=== PATIENT | male | born 1935 | race Caucasian/White ===

== ENCOUNTER 2022-12-24 16:44 | Inpatient (IN) | payer MEDICARE, OTHER ==
[~2022-12-24] VITALS: Ht 167.6 cm; Wt 72.6 kg
[2022-12-24 17:42] LABS: BASOPHILS % 0.1 % (0.0-1.0); EOSINOPHILS # (AUTO) 0.1 (0.0-0.4); EOSINOPHILS % 1.4 % (0.0-6.0); HEMATOCRIT 45.2 % (38.2-49.6); LYMPHOCYTES # (AUTO) 0.9 (1.0-3.2); MEAN CORPUSCULAR HEMOGLOBIN 30.1 pg (28-32); MEAN CORPUSCULAR HGB CONC 33.2 g/dL (31-35); MEAN CORPUSCULAR VOLUME 90.8 fL (81-99); MONOCYTES # (AUTO) 0.6 (0.2-0.8); MONOCYTES % 8.3 % (4.4-11.3); NEUTROPHILS # (AUTO) 5.6 (2.1-6.9); NEUTROPHILS % 77.8 % (38.7-80.0); PLATELET COUNT 146 x10e3/uL (140-360); RED BLOOD COUNT 4.98 x10e6/uL (4.3-5.7); RED CELL DISTRIBUTION WIDTH 13.3 % (11.7-14.4)
[2022-12-24 17:58] LABS: ALANINE AMINOTRANSFERASE 20 IU/L (0-55); ALBUMIN 3.7 g/dL (3.5-5.0); ALBUMIN/GLOBULIN RATIO 1.5 (0.8-2.0); ALKALINE PHOSPHATASE 64 IU/L (40-150); ANION GAP 12.1 mmol/L (8-16); BLOOD UREA NITROGEN 27 mg/dL (7-26); BUN/CREATININE RATIO 21 (6-25); CALCIUM 9.6 mg/dL (8.4-10.2); CARBON DIOXIDE 26 mmol/L (22-29); CHLORIDE 109 mmol/L (98-107); CREATININE, SERUM 1.27 mg/dL (0.72-1.25); GLUCOSE 93 mg/dL (74-118); POTASSIUM 4.1 mmol/L (3.5-5.1); SODIUM 143 mmol/L (136-145)
[2022-12-24] MEDS ORDERED: ONDANSETRON HCL INJ 2MG/ML 2ML 2 MG/ML VIAL IV PRN (18:45)
[2022-12-24] MEDS ORDERED: HYDRALAZINE HCL 20 MG/ML VIAL ONE (19:31)
[2022-12-24] MEDS: HYDRALAZINE HCL 20 MG/ML VIAL IV PRN ×2 (19:33→22:16)
[2022-12-24 19:40] LABS: CLARITY,URINE CLEAR (CLEAR); COLOR,URINE YELLOW (YELLOW); LEUKOCYTE ESTERASE ,URINE NEGATIVE (NEGATIVE); NITRITE,URINE NEGATIVE (NEGATIVE)
[2022-12-24 19:42] LABS: KETONES,URINE NEGATIVE (NEGATIVE); PROTEIN,URINE DIPSTICK 1+ (NEGATIVE); URINE UROBILINOGEN 0.2 mg/dL (0.2 - 1)
[2022-12-24 19:43] LABS: BACTERIA,URINE FEW /HPF; EPITHELIAL CELLS,URINE FEW /LPF; RBC,URINE 0-5 /HPF (0-5); WBC,URINE (MAN) 0-5 /HPF (0-5)
[2022-12-25] VITALS (10 sets, daily range): BP systolic 139–190; BP diastolic 62–92
[2022-12-25 02:33] LABS: CREATINE KINASE 293 IU/L (30-200)
[2022-12-25] MEDS: HYDRALAZINE HCL 20 MG/ML VIAL IV PRN ×3 (08:45→21:52)
[2022-12-25] MEDS ORDERED: LISINOPRIL40 MG PO (08:50)
[2022-12-25] MEDS ORDERED: POTASSIUM CHLO20 ME1 PO (08:50)
[2022-12-25] MEDS ORDERED: TERAZOSIN HCL5 MG PO (08:50)
[2022-12-25] MEDS ORDERED: ATORVASTATIN CA20 MG PO (09:56)
[2022-12-25] MEDS ORDERED: ASPIRIN81 MG PO (09:56)
[2022-12-25] MEDS ORDERED: CLOPIDOGREL75 MG PO (09:56)
[2022-12-25 10:06] LABS: CREATINE KINASE 234 IU/L (30-200)
[2022-12-25] MEDS ORDERED: ACETAMINOPHEN 325 MG TAB PO PRN (12:30)
[2022-12-25] MEDS ORDERED: POLYETHYLENE GLYCOL 3350 17 GM PACK PO PRN (16:45)
[2022-12-25] MEDS ORDERED: POTASSIUM CHLORIDE 20 MEQ TAB CR PO SCH (17:00)
[2022-12-25] MEDS: DOCUSATE SODIUM 100 MG CAP PO SCH (17:19)
[2022-12-25] MEDS: SODIUM CHLORIDE 0.9% 1000ML 1,000 ML IV SCH (17:20)
[2022-12-25 18:34] LABS: CREATINE KINASE 163 IU/L (30-200)
[2022-12-25] MEDS ORDERED: CO Q-10100 MG PO (18:54)
[2022-12-25] MEDS ORDERED: CLONIDINE PO (18:54)
[2022-12-25] MEDS ORDERED: MAGNESIUM PO (18:54)
[2022-12-26] VITALS (9 sets, daily range): BP systolic 102–185; BP diastolic 66–89
[2022-12-26] MEDS: HYDRALAZINE HCL 20 MG/ML VIAL IV PRN ×2 (05:35→23:30)
[2022-12-26] MEDS: SODIUM CHLORIDE 0.9% 1000ML 1,000 ML IV SCH ×3 (05:36→22:45)
[2022-12-26 06:10] LABS: BASOPHILS % 0.2 % (0.0-1.0); EOSINOPHILS # (AUTO) 0.1 (0.0-0.4); EOSINOPHILS % 0.8 % (0.0-6.0); HEMATOCRIT 42.7 % (38.2-49.6); HEMOGLOBIN 14.2 g/dL (14.0-18.0); LYMPHOCYTES # (AUTO) 0.6 (1.0-3.2); LYMPHOCYTES % 7.7 % (18.0-39.1); MEAN CORPUSCULAR HEMOGLOBIN 30.1 pg (28-32); MEAN CORPUSCULAR HGB CONC 33.3 g/dL (31-35); MEAN CORPUSCULAR VOLUME 90.7 fL (81-99); MONOCYTES # (AUTO) 0.8 (0.2-0.8); MONOCYTES % 9.5 % (4.4-11.3); NEUTROPHILS # (AUTO) 6.8 (2.1-6.9); NEUTROPHILS % 81.4 % (38.7-80.0); PLATELET COUNT 155 x10e3/uL (140-360); RED BLOOD COUNT 4.71 x10e6/uL (4.3-5.7); RED CELL DISTRIBUTION WIDTH 13.3 % (11.7-14.4)
[2022-12-26 06:50] LABS: ALBUMIN 3.1 g/dL (3.5-5.0); ALBUMIN/GLOBULIN RATIO 1.2 (0.8-2.0); ANION GAP 11.7 mmol/L (8-16); CALCIUM 8.6 mg/dL (8.4-10.2); CREATININE, SERUM 1.1 mg/dL (0.72-1.25); MAGNESIUM 2.2 MG/DL (1.3-2.1); PHOSPHORUS 3.3 MG/DL (2.3-4.7); POTASSIUM 3.7 mmol/L (3.5-5.1)
[2022-12-26 06:57] LABS: THYROID STIMULATING HORMONE 0.923 uIU/mL (0.350-4.940)
[2022-12-26] MEDS ORDERED: CLOPIDOGREL BISULFATE 75 MG TAB PO SCH (09:00)
[2022-12-26] MEDS: ATORVASTATIN 40 MG TAB PO SCH (09:00)
[2022-12-26] MEDS ORDERED: LISINOPRIL 20 MG TAB PO SCH (09:00)
[2022-12-26] MEDS: POTASSIUM CHLORIDE 20 MEQ TAB CR PO SCH ×2 (10:31→17:34)
[2022-12-26] MEDS: FAMOTIDINE 20 MG TAB PO SCH ×3 (10:32→17:32)
[2022-12-26] MEDS: ASPIRIN 81 MG CHEW TAB PO SCH (10:33)
[2022-12-26] MEDS: TERAZOSIN HCL 5 MG CAP PO SCH (10:33)
[2022-12-26] MEDS: METOPROLOL SUCCINATE 50 MG TAB XL PO SCH (11:00)
[2022-12-26] MEDS: AMIODARONE HCL 200 MG TAB PO SCH (17:00)
[2022-12-26] MEDS: DOCUSATE SODIUM 100 MG CAP PO SCH ×2 (17:32→17:35)
[2022-12-26] MEDS: APIXABAN 5 MG TABLET PO SCH (17:35)
[2022-12-27] VITALS (8 sets, daily range): BP systolic 98–190; BP diastolic 70–90
[2022-12-27] MEDS ORDERED: LISINOPRIL 10 MG TAB PO SCH (09:00)
[2022-12-27] MEDS: POTASSIUM CHLORIDE 20 MEQ TAB CR PO SCH ×2 (09:04→17:20)
[2022-12-27] MEDS: AMIODARONE HCL 200 MG TAB PO SCH ×2 (09:04→17:20)
[2022-12-27] MEDS: TERAZOSIN HCL 5 MG CAP PO SCH (09:04)
[2022-12-27] MEDS: DOCUSATE SODIUM 100 MG CAP PO SCH ×2 (09:04→17:20)
[2022-12-27] MEDS: APIXABAN 5 MG TABLET PO SCH ×2 (09:04→17:20)
[2022-12-27] MEDS: ATORVASTATIN 40 MG TAB PO SCH (09:04)
[2022-12-27] MEDS: ASPIRIN 81 MG CHEW TAB PO SCH (09:05)
[2022-12-27] MEDS: FAMOTIDINE 20 MG TAB PO SCH ×2 (09:05→17:19)
[2022-12-27] MEDS: METOPROLOL SUCCINATE 50 MG TAB XL PO SCH (09:05)
[2022-12-27] MEDS: SODIUM CHLORIDE 0.9% 1000ML 1,000 ML IV SCH (09:06)
[2022-12-27] MEDS ORDERED: ONDANSETRON HCL 4 MG ORAL DISINTEGRATING TAB PO PRN (14:15)
[2022-12-28] VITALS (8 sets, daily range): BP systolic 159–186; BP diastolic 60–91
[2022-12-28 05:53] LABS: BASOPHILS % 0.3 % (0.0-1.0); EOSINOPHILS # (AUTO) 0.2 (0.0-0.4); EOSINOPHILS % 3.1 % (0.0-6.0); HEMOGLOBIN 13.2 g/dL (14.0-18.0); LYMPHOCYTES # (AUTO) 0.8 (1.0-3.2); LYMPHOCYTES % 11.6 % (18.0-39.1); MEAN CORPUSCULAR HEMOGLOBIN 29.9 pg (28-32); MEAN CORPUSCULAR VOLUME 90.5 fL (81-99); MONOCYTES # (AUTO) 0.7 (0.2-0.8); MONOCYTES % 10.5 % (4.4-11.3); NEUTROPHILS % 74.1 % (38.7-80.0); PLATELET COUNT 146 x10e3/uL (140-360); RED BLOOD COUNT 4.42 x10e6/uL (4.3-5.7); RED CELL DISTRIBUTION WIDTH 13.2 % (11.7-14.4)
[2022-12-28] MEDS: HYDRALAZINE HCL 20 MG/ML VIAL IV PRN ×2 (06:00→20:53)
[2022-12-28 06:15] LABS: ANION GAP 8.9 mmol/L (8-16); CALCIUM 8.5 mg/dL (8.4-10.2); CREATININE, SERUM 0.93 mg/dL (0.72-1.25); POTASSIUM 3.9 mmol/L (3.5-5.1)
[2022-12-28] MEDS: METOPROLOL SUCCINATE 50 MG TAB XL PO SCH (08:40)
[2022-12-28] MEDS: DOCUSATE SODIUM 100 MG CAP PO SCH ×2 (08:40→17:37)
[2022-12-28] MEDS: ATORVASTATIN 40 MG TAB PO SCH (08:40)
[2022-12-28] MEDS: APIXABAN 5 MG TABLET PO SCH ×2 (08:40→17:37)
[2022-12-28] MEDS: ASPIRIN 81 MG CHEW TAB PO SCH (08:40)
[2022-12-28] MEDS: FAMOTIDINE 20 MG TAB PO SCH ×2 (08:40→17:37)
[2022-12-28] MEDS: TERAZOSIN HCL 5 MG CAP PO SCH (08:40)
[2022-12-28] MEDS: AMIODARONE HCL 200 MG TAB PO SCH ×2 (08:41→17:37)
[2022-12-28] MEDS: POTASSIUM CHLORIDE 20 MEQ TAB CR PO SCH ×2 (08:51→17:37)
[2022-12-29] VITALS (7 sets, daily range): BP systolic 149–195; BP diastolic 72–92
[2022-12-29] MEDS: DOCUSATE SODIUM 100 MG CAP PO SCH ×2 (08:51→16:16)
[2022-12-29] MEDS: AMIODARONE HCL 200 MG TAB PO SCH ×2 (08:51→16:15)
[2022-12-29] MEDS: ASPIRIN 81 MG CHEW TAB PO SCH (08:51)
[2022-12-29] MEDS: FAMOTIDINE 20 MG TAB PO SCH (08:51)
[2022-12-29] MEDS: METOPROLOL SUCCINATE 50 MG TAB XL PO SCH (08:52)
[2022-12-29] MEDS: POTASSIUM CHLORIDE 20 MEQ TAB CR PO SCH ×2 (08:52→16:15)
[2022-12-29] MEDS: ATORVASTATIN 40 MG TAB PO SCH (08:52)
[2022-12-29] MEDS: TERAZOSIN HCL 5 MG CAP PO SCH (08:52)
[2022-12-29] MEDS: APIXABAN 5 MG TABLET PO SCH ×2 (08:56→16:15)
[2022-12-29] MEDS: HYDRALAZINE HCL 20 MG/ML VIAL IV PRN ×2 (12:33→20:44)
[2022-12-30] VITALS (10 sets, daily range): BP systolic 137–195; BP diastolic 59–85
[2022-12-30] MEDS: FAMOTIDINE 20 MG TAB PO SCH ×2 (08:06→16:09)
[2022-12-30] MEDS: ATORVASTATIN 40 MG TAB PO SCH (08:07)
[2022-12-30] MEDS: POTASSIUM CHLORIDE 20 MEQ TAB CR PO SCH ×2 (08:07→16:11)
[2022-12-30] MEDS: APIXABAN 5 MG TABLET PO SCH ×2 (08:08→16:09)
[2022-12-30] MEDS: AMIODARONE HCL 200 MG TAB PO SCH ×2 (08:08→16:10)
[2022-12-30] MEDS: ASPIRIN 81 MG CHEW TAB PO SCH (08:08)
[2022-12-30] MEDS: DOCUSATE SODIUM 100 MG CAP PO SCH ×2 (08:09→16:10)
[2022-12-30] MEDS: METOPROLOL SUCCINATE 50 MG TAB XL PO SCH (08:18)
[2022-12-30] MEDS: TERAZOSIN HCL 5 MG CAP PO SCH (08:19)
[2022-12-30] MEDS: HYDRALAZINE HCL 20 MG/ML VIAL IV PRN (13:38)
[2022-12-30] MEDS ORDERED: LISINOPRIL 2.5 MG TAB PO ONE (17:30)
[2022-12-31] VITALS (8 sets, daily range): BP systolic 154–186; BP diastolic 64–93
[2022-12-31] MEDS: HYDRALAZINE HCL 20 MG/ML VIAL IV PRN (05:09)
[2022-12-31] MEDS: FAMOTIDINE 20 MG TAB PO SCH ×2 (08:35→17:26)
[2022-12-31] MEDS: DOCUSATE SODIUM 100 MG CAP PO SCH ×3 (08:35→17:26)
[2022-12-31] MEDS: ASPIRIN 81 MG CHEW TAB PO SCH (08:35)
[2022-12-31] MEDS: POTASSIUM CHLORIDE 20 MEQ TAB CR PO SCH ×2 (08:36→17:27)
[2022-12-31] MEDS: ATORVASTATIN 40 MG TAB PO SCH (08:36)
[2022-12-31] MEDS: APIXABAN 5 MG TABLET PO SCH ×2 (08:36→17:26)
[2022-12-31] MEDS: TERAZOSIN HCL 5 MG CAP PO SCH (08:37)
[2022-12-31] MEDS: METOPROLOL SUCCINATE 50 MG TAB XL PO SCH (08:37)
[2022-12-31] MEDS: AMIODARONE HCL 200 MG TAB PO SCH ×2 (08:38→17:27)
[2022-12-31] MEDS ORDERED: LISINOPRIL 2.5 MG TAB PO SCH (09:00)
[2023-01-01] MEDS: HYDRALAZINE HCL 20 MG/ML VIAL IV PRN ×2 (00:51→06:05)
[2023-01-01 01:14] VITALS: BP 178/72
[2023-01-01 05:35] VITALS: BP 174/65
[2023-01-01 08:43] VITALS: BP 169/71
[2023-01-01] MEDS: LISINOPRIL 10 MG TAB PO SCH (08:53)
[2023-01-01] MEDS: METOPROLOL SUCCINATE 50 MG TAB XL PO SCH (08:54)
[2023-01-01] MEDS: APIXABAN 5 MG TABLET PO SCH ×2 (08:54→16:35)
[2023-01-01] MEDS: ASPIRIN 81 MG CHEW TAB PO SCH (08:54)
[2023-01-01] MEDS: ATORVASTATIN 40 MG TAB PO SCH (08:54)
[2023-01-01] MEDS: TERAZOSIN HCL 5 MG CAP PO SCH (08:54)
[2023-01-01] MEDS: FAMOTIDINE 20 MG TAB PO SCH ×2 (08:54→16:36)
[2023-01-01] MEDS: AMIODARONE HCL 200 MG TAB PO SCH ×2 (08:54→16:36)
[2023-01-01] MEDS: DOCUSATE SODIUM 100 MG CAP PO SCH ×2 (08:55→16:39)
[2023-01-01] MEDS: POTASSIUM CHLORIDE 20 MEQ TAB CR PO SCH ×2 (08:55→16:36)
[2023-01-01 12:00] VITALS: BP 153/69
[2023-01-01 16:00] VITALS: BP 154/67
[2023-01-01 20:00] VITALS: BP 158/87
[2023-01-02] VITALS: BP 162/62
[2023-01-02 04:00] VITALS: BP 160/82
[2023-01-02 08:40] VITALS: BP 159/76
[2023-01-02] MEDS: ASPIRIN 81 MG CHEW TAB PO SCH (09:33)
[2023-01-02] MEDS: AMIODARONE HCL 200 MG TAB PO SCH (09:33)
[2023-01-02] MEDS: METOPROLOL SUCCINATE 50 MG TAB XL PO SCH (09:33)
[2023-01-02] MEDS: DOCUSATE SODIUM 100 MG CAP PO SCH (09:34)
[2023-01-02] MEDS: ATORVASTATIN 40 MG TAB PO SCH (09:34)
[2023-01-02] MEDS: POTASSIUM CHLORIDE 20 MEQ TAB CR PO SCH (09:34)
[2023-01-02] MEDS: APIXABAN 5 MG TABLET PO SCH (09:34)
[2023-01-02] MEDS: TERAZOSIN HCL 5 MG CAP PO SCH (09:34)
[2023-01-02] MEDS: LISINOPRIL 10 MG TAB PO SCH (09:34)
[2023-01-02] MEDS: FAMOTIDINE 20 MG TAB PO SCH (09:34)
[2023-01-02 12:31] VITALS: BP 165/69
[2023-01-02] MEDS ORDERED: FAMOTIDINE20 MG PO (14:22)
[2023-01-02] MEDS ORDERED: ACETAMINOPHEN325 M1 PO (14:22)
[2023-01-02] MEDS ORDERED: MIRALAX17 GM PO (14:22)
[2023-01-02] MEDS ORDERED: ELIQUIS5 MG PO (14:22)
[2023-01-02] MEDS ORDERED: AMIODARONE HCL200 MG PO (14:22)
[2023-01-02] MEDS ORDERED: TOPROL XL50 MG PO (14:22)
[2023-01-02] MEDS ORDERED: ONDANSETRON ODT4 MG PO (14:22)
[2023-01-02] MEDS ORDERED: Docusate Sodium PO (14:22)
[2023-01-02] MEDS ORDERED: LISINOPRIL10 MG PO (14:22)
[2023-01-02 15:58] VITALS: BP 167/87
== END 2023-01-02 15:38 | DRG 309 ==
LOC: ER 16:53 → ERHOLD 18:37 → MED/SURG3 22:40 → OBSVTOIN 12-26 08:47
PROVIDERS: ADMIT Internal Medicine; ATTEND Internal Medicine
DX: I48.0 Paroxysmal atrial fibrillation (principal); N17.9 Acute kidney failure, unspecified; Z66 Do not resuscitate; E78.5 Hyperlipidemia, unspecified; R29.6 Repeated falls; R53.1 Weakness; I95.9 Hypotension, unspecified; W19.XXXA Unspecified fall, initial encounter; I12.9 Hypertensive chronic kidney disease with stage 1 through stage 4 chronic kidney disease, or unspecified chronic kidney disease; N18.9 Chronic kidney disease, unspecified; E86.0 Dehydration; M19.90 Unspecified osteoarthritis, unspecified site; Z86.73 Personal history of transient ischemic attack (TIA), and cerebral infarction without residual deficits; Z20.822 Contact with and (suspected) exposure to COVID-19; Z87.891 Personal history of nicotine dependence; Z79.01 Long term (current) use of anticoagulants; Z79.82 Long term (current) use of aspirin
CPT/HCPCS: 0223U; 36415; 70450; 71045; 72125; 80048; 80053; 80061; 81001; 82550; 82553; 83036; 83735; 84100; 84443; 84484; 85025; 93005; 93306; 99284; G0378; J7030

== ENCOUNTER 2023-07-06 23:11 | Emergency (ER) | payer OTHER, MEDICARE ==
[~2023-07-06] VITALS: Ht 167.6 cm; Wt 72.6 kg
[~2023-07-06 23:11] MED LIST: ACETAMINOPHEN325 M1 PO; AMIODARONE HCL200 MG PO; ASPIRIN81 MG PO; ATORVASTATIN CA20 MG PO; CLONIDINE PO; CLOPIDOGREL75 MG PO; CO Q-10100 MG PO; Docusate Sodium PO; ELIQUIS5 MG PO; FAMOTIDINE20 MG PO; LISINOPRIL10 MG PO; LISINOPRIL40 MG PO; MAGNESIUM PO; MIRALAX17 GM PO; MUPIROCIN22 GM TOP; ONDANSETRON ODT4 MG PO; POTASSIUM CHLO20 ME1 PO; TERAZOSIN HCL5 MG PO; TOPROL XL50 MG PO
[2023-07-06] MEDS ORDERED: ONDANSETRON HCL INJ 2MG/ML 2ML 2 MG/ML VIAL IV STA (23:23)
[2023-07-06] MEDS ORDERED: Morphine 2mg Syringe 2 MG/ML SYR ONE (23:28)
[2023-07-06] MEDS ORDERED: ONDANSETRON HCL INJ 2MG/ML 2ML 2 MG/ML VIAL ONE (23:29)
[2023-07-06] MEDS ORDERED: Morphine 2mg Syringe 2 MG/ML SYR IV ONE (23:30)
[2023-07-07] MEDS ORDERED: HYDROCODON-ACE1 EA11 PO (01:02)
[2023-07-07 01:40] VITALS: BP 169/72; O2SAT 98
== END 2023-07-07 01:18 | disposition home or self-care (01) ==
LOC: ER 23:15
DX: S22.42XA Multiple fractures of ribs, left side, initial encounter for closed fracture (principal); W01.198A Fall on same level from slipping, tripping and stumbling with subsequent striking against other object, initial encounter; Y93.01 Activity, walking, marching and hiking; Y92.89 Other specified places as the place of occurrence of the external cause; I10 Essential (primary) hypertension; E78.5 Hyperlipidemia, unspecified; Z86.73 Personal history of transient ischemic attack (TIA), and cerebral infarction without residual deficits
CPT/HCPCS: 70450; 71250; 72125; 99284; J2270; J2405

== ENCOUNTER 2025-07-02 16:57 | Emergency (ER) | payer MEDICARE ==
[~2025-07-02] VITALS: Ht 167.6 cm; Wt 73.5 kg
[~2025-07-02 16:57] MED LIST changes: +HYDROCODON-ACE1 EA11 PO
[2025-07-02 17:56] VITALS: PULSE 65; RESP 18; TEMP 97.8
[2025-07-02 18:17] LABS: EST GLOMERULAR FILTRATION RATE 55.0 ML/MIN (>=60)
[2025-07-02 20:29] VITALS: BP 156/79; PULSE 63; RESP 17; TEMP 97.8; O2SAT 95
== END 2025-07-02 19:45 | disposition home or self-care (01) ==
LOC: ER 18:12
DX: E87.6 Hypokalemia (principal); I10 Essential (primary) hypertension; E78.5 Hyperlipidemia, unspecified; Z86.73 Personal history of transient ischemic attack (TIA), and cerebral infarction without residual deficits
CPT/HCPCS: 36415; 80048; 99283